=== PATIENT | female | born 1985 | race Caucasian/White ===

== ENCOUNTER 2019-05-28 10:00 | Inpatient (IN) | payer OTHER ==
[2019-05-28 11:10] LABS: BASO % 0.6 % (0-2.0); EOS % 0.3 % (0-4.5); HEMATOCRIT 39.3 % (32.4-45.2); HEMOGLOBIN 13.6 GM/dL (10.7-15.3); LYMPH % 20.8 % (8-40); MCH 31.1 pg (25.7-33.7); MCHC 34.7 g/dl (32.0-36.0); MEAN CELL VOLUME 89.8 fl (80-96); MEAN PLT VOLUME 8.7 fl (7.5-11.1); MONO % 7.9 % (3.8-10.2); NEUT % 70.4 % (42.8-82.8); PLATELET COUNT 225 K/MM3 (134-434); RBC 4.38 M/mm3 (3.60-5.2); RDW 13.1 % (11.6-15.6); WHITE BLOOD COUNT 7.4 K/mm3 (4.0-10.0)
[2019-05-28 11:26] LABS: INR 0.87 (0.83-1.09); PROTHROMBIN TIME (PATIENT) 10.3 SEC (9.7-13.0)
[2019-05-28 11:47] LABS: ALBUMIN 2.7 g/dl (3.4-5.0); BILIRUBIN,TOTAL 0.2 mg/dL (0.2-1); BLOOD UREA NITROGEN 8.5 mg/dL (7-18); CALCIUM 9.2 mg/dL (8.5-10.1); CREATININE 0.6 mg/dL (0.55-1.3); POTASSIUM 4.3 mmol/L (3.5-5.1); TOT PROT 6.4 g/dl (6.4-8.2)
[2019-05-28 12:17] LABS: EPI CELLS 3.5 /HPF (0-5/HPF); HYALINE CASTS 1 /lpf (0-8); URINE APPEARANCE CLEAR; URINE BACTERIA 59.9 /hpf (NEGATIVE); URINE BILIRUBIN NEGATIVE (NEGATIVE); URINE COLOR YELLOW; URINE GLUCOSE (UA) NEGATIVE (NEGATIVE); URINE KETONE NEGATIVE (NEGATIVE); URINE LEUK ESTERASE TRACE (NEGATIVE); URINE NITRITE NEGATIVE (NEGATIVE); URINE PROTEIN NEGATIVE (NEGATIVE); URINE RBC 0 /hpf (0-4); URINE UROBILINOGEN 0.2 mg/dL (0.2-1.0); URINE WBC 10 /hpf (0-5)
[2019-05-28 12:37] VITALS: BMI 36.2
--- NOTE | 2019-05-28 12:42 | HP ---
Past Medical History - Admission Chief Complaint: Uterine Contractions History of Present Illness: 34yo @ 40.0 weeks presents with mild contractions, found not to be in active labor, but has elevated blood pressures. In light of the elevated blood pressures at this time, decision made to induce labor No VB/LOF. 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 Weeks Gestation by Dates: 40.0 ...EDC by Dates: 05/28/19 ...EDC by Sono: 05/28/19 Heme/Onc: Yes: Anemia Infectious Disease: No: AIDS, C-Diff, Herpes Zoster, HIV, MRSA, STD's, Tuberculosis, VREF, Other - Past Surgical History Past Surgical History: Yes: None Hx Myomectomy: No Hx Transabdominal Cerclage: No - Smoking History Smoking history: Never smoked Have you smoked in the past 12 months: No - Alcohol/Substance Use Hx Alcohol Use: No - Social History Usual Living Arrangement: Yes: With Child Do you think of yourself as: Straight/Heterosexual ADL: Independent History of Recent Travel: No Home Medications - Allergies Allergies/Adverse Reactions: Allergies Allergy/AdvReac Type Severity Reaction Status Date / Time No Known Allergies Allergy Verified 05/28/19 10:41 - Home Medications Home Medications: Ambulatory Orders Prenat 115/Iron Fum/Folic/Dss [ 19 Tablet] 1 tab PO DAILY 05/04/19 Ferrous Sulfate [Iron] 325 mg PO DAILY 05/06/19 Review of Systems - Review of Systems Constitutional: denies: No Symptoms, Chills, Diaphoresis, Fever, Lethargy, Loss of Appetite, Malaise, Night Sweats, Unintentional Wgt. Loss, Weakness, Other Cardiovascular: denies: No Symptoms, Chest Pain, Edema, Palpitations, Shortness of Breath, Other Respiratory: denies: No Symptoms, Cough, Exercise Intolerance, Hemoptysis, Orthopnea, PND, Snoring, SOB, SOB on Exertion, Wheezing, Other Gastrointestinal: denies: No Symptoms, Abdominal Pain, Bloating, Constipation, Diarrhea, Dysphagia, Indigestion, Melena, Nausea, Rectal Bleeding, Vomiting, Vomiting Blood, Other Physical Exam - Maternity Vital Signs: Vital Signs Temperature 98.2 F 05/28/19 11:52 Pulse Rate 80 05/28/19 11:52 Respiratory Rate 17 05/28/19 11:52 Blood Pressure 155/104 H 05/28/19 11:52 O2 Sat by Pulse Oximetry (%) Constitutional: Yes: Well Nourished, No Distress, Calm - Abdominal Exam/OB Number of Fetuses: Single Presentation: Vertex Contractions: Yes Regularity: Irregular Intensity: Mild Monitor Mode: External Heart Rate Location: [facility] Category: I Accelerations: Non-Uniform Decelerations: None - Vaginal Exam/OB Vaginal Bleediing: No Speculum Exam: No Dilatation (cm): 2-3 Effacement (%): 50 Amniotic Membrane Status: Intact Presentation: Vertex/Position Station: -3 - Physical Exam Edema: No - Labs Lab Results: CBC, BMP 05/28/19 10:56 05/28/19 10:56 Imaging - Results Ultrasound: Report Reviewed Assessment/Plan 34yo @ 40.0wks here with elevated blood pressures, for IOL for gestational HTN Admit to L&D Cat I tracing PIH labs done, normal. Negative protein Expectantly manage BP unless persistently elevated in severe range Pitocin/AROM induction Anticipate Mike Groves MD
[2019-05-28] MEDS ORDERED: OXYTOCIN 30 UNITS in 0.9% NS 30 UNIT/500 ML INFUS.BAG IVPB SCH (12:45)
--- NOTE | 2019-05-28 13:24 | PN ---
Progress Note, Labor Vaginal Exam #1 Labor Exam Date: 05/28/19 Labor Exam Time: 13:21 Heart Rate (range): Cat I Dilatation: 4 Effacement (%): 50 Amniotic Membrane Status: Ruptured Presentation: Vertex/Position Station: -3 Remarks: AROM, scant clears Start pitocin Discussed pain management, epidural prn Intermittent variable decels when lying on back, repositioned with improvement. Will place IUPC for better tracing of contractions Anticipate GUSTAVO Groves MD
[2019-05-28] MEDS ORDERED: ELECTROLYTE-148 SOLN 1,000 ML IV SCH (13:45)
[2019-05-28] MEDS ORDERED: OXYTOCIN 30 UNITS in 0.9% NS 30 UNIT/500 ML INFUS.BAG IVPB ONE (13:55)
[2019-05-28 13:59] LABS: URIC ACID 5.6 mg/dL (2.6-7.2)
[2019-05-28] MEDS ORDERED: LIDOCAINE HCL 1% PRESERVATIVE FREE - 30ML VIAL ONE (15:02)
[2019-05-28] MEDS ORDERED: OXYTOCIN 20 UNITS in 0.9% NS 20 UNIT/1,000 ML INFUS.BAG IV ONE ×2 (15:03→17:22)
--- NOTE | 2019-05-28 15:03 | PN ---
Progress Note, Labor Vaginal Exam #2 Labor Exam Date: 05/28/19 Labor Exam Time: 15:03 Heart Rate (range): Cat II Dilatation: 10 Effacement (%): 100 Amniotic Membrane Status: Ruptured Presentation: Vertex/Position Station: 0 Remarks: Pt very uncomfortable Now complete FHT Cat II 2/2 variable decels with contractions Will start pushing Anticipate Mike Groves MD
[2019-05-28] MEDS ORDERED: BISACODYL 10 MG SUPP.RECT RC PRN (15:34)
[2019-05-28] MEDS ORDERED: WITCH HAZEL 50% (TUCKS) 40 PAD/JAR PAD TP PRN (15:34)
[2019-05-28] MEDS ORDERED: BENZOCAINE 28 GM HEMORRHOIDAL OINTMENT TP PRN (15:34)
[2019-05-28] MEDS ORDERED: BENZOCAINE 20% 57 GM BOTTLE TP PRN (15:34)
[2019-05-28] MEDS ORDERED: METHYLERGONOVINE MALEATE 0.2 MG/1 ML AMP IM PRN (15:34)
--- NOTE | 2019-05-28 15:34 | PN ---
Delivery - Delivery Vaginal Delivery: Spontaneous Type of Anesthesia: None Episiotomy/Laceration: Midline, 1st degree EBL (cc): 250 Delivery, Single - Stages of Labor Placenta: Yes: Spontaneous - Condition of Sales Team Recruiter/Country Singer Present: Yes Gender: Female Position: Left, OA - 1 Minute Total Score: 9 5 Minutes Total Score: 9 - Feeding Plan Initial Plan: Exclusive throughout hospitalization Benefits of Exclusively reinforced: No Remarks - Remarks Remarks: of VFI from ALEXANDER position over intact perineum. Nechal x 1 delivered through. No meconium. 40 weeks. No anesthesia. Spontaneous delivery of anterior shoulder and body. Infant placed on maternal abdomen. Cord clamped and cut. Weight pending to allow sufficient skin to skin. Apgars 9/9. Spontaneous delivery of intact placenta with 3VC. Fundus firm. Perineum inspected, midline first degree identified, and repaired with 2-0 chromic after 1% lidocaine injected. Hemostasis noted. EBL 250ml. Mother and baby doing well Melissa Groves MD
[2019-05-28] MEDS ORDERED: ACETAMINOPHEN 325 MG TABLET (FP) ONE (15:43)
[2019-05-28] MEDS ORDERED: IBUPROFEN 600 MG TABLET (FP) PO ONE (15:43)
[2019-05-28] MEDS ORDERED: OXYTOCIN 20 UNITS in 0.9% NS 20 UNIT/1,000 ML INFUS.BAG IV SCH (15:45)
[2019-05-28] MEDS: ACETAMINOPHEN 325 MG TABLET (FP) PO PRN ×2 (15:55→20:13)
[2019-05-28] MEDS: IBUPROFEN 600 MG TABLET (FP) PO PRN ×2 (15:55→20:14)
[2019-05-29 08:18] LABS: BASO % 0.4 % (0-2.0); EOS % 1.1 % (0-4.5); HEMATOCRIT 35.9 % (32.4-45.2); HEMOGLOBIN 12.3 GM/dL (10.7-15.3); MCH 31.2 pg (25.7-33.7); MCHC 34.2 g/dl (32.0-36.0); MEAN CELL VOLUME 91.2 fl (80-96); MEAN PLT VOLUME 9.3 fl (7.5-11.1); MONO % 7.1 % (3.8-10.2); NEUT % 71.4 % (42.8-82.8); PLATELET COUNT 200 K/MM3 (134-434); RBC 3.93 M/mm3 (3.60-5.2); RDW 13.5 % (11.6-15.6); WHITE BLOOD COUNT 8.4 K/mm3 (4.0-10.0)
[2019-05-29] MEDS: PRENATAL VITAMINS W/ FOLIC ACID TABLET (FP) PO SCH (09:29)
[2019-05-29] MEDS ORDERED: FLU VACCINE QUAD 60 MCG/0.5 ML (MDV 19-20) IM ONE (10:00)
[2019-05-29] MEDS ORDERED: FLU VACC QS2019-20(6MOS UP)/PF 60 MCG/0.5 ML SYRINGE IM ONE (10:00)
--- NOTE | 2019-05-29 11:51 | PN ---
Post Progress Note - Subjective Subjective: Pain controlled. Lochia < menses. . Ambulating Post Day: 1 ([place]) Type of Delivery: Vital Signs: Vital Signs Temperature 97.8 F 05/29/19 08:15 Pulse Rate 61 05/29/19 08:15 Respiratory Rate 20 05/29/19 08:15 Blood Pressure 137/91 05/29/19 08:15 O2 Sat by Pulse Oximetry (%) Uterus: Yes: Fundus below umbilicus Abdomen/GI: Yes: Abdomen soft, Tolerating PO Lochia: Yes: Rubra Lochia, amount: Small Extremities: Yes: Calves non-tender Perineum: Yes: Laceration Activity: Ambulating - Labs Labs: CBC WBC 8.4 K/mm3 (4.0-10.0) 05/29/19 07:35 RBC 3.93 M/mm3 (3.60-5.2) 05/29/19 07:35 Hgb 12.3 GM/dL (10.7-15.3) 05/29/19 07:35 Hct 35.9 % (32.4-45.2) 05/29/19 07:35 MCV 91.2 fl (80-96) 05/29/19 07:35 MCH 31.2 pg (25.7-33.7) 05/29/19 07:35 MCHC 34.2 g/dl (32.0-36.0) 05/29/19 07:35 RDW 13.5 % (11.6-15.6) 05/29/19 07:35 Plt Count 200 K/MM3 (134-434) 05/29/19 07:35 MPV 9.3 fl (7.5-11.1) 05/29/19 07:35 Absolute Neuts (auto) 6.0 K/mm3 (1.5-8.0) 05/29/19 07:35 Neutrophils % 71.4 % (42.8-82.8) 05/29/19 07:35 Lymphocytes % 20.0 % (8-40) 05/29/19 07:35 Monocytes % 7.1 % (3.8-10.2) 05/29/19 07:35 Eosinophils % 1.1 % (0-4.5) D 05/29/19 07:35 Basophils % 0.4 % (0-2.0) 05/29/19 07:35 Nucleated RBC % 0 % (0-0) 05/29/19 07:35 Assessment/Plan 34yo s/p , PPD#1 c/b GHTN Routine PP care PO pain control Labs reviewed Monitor BPs, no meds this time Anticipate d/c to home PPD#2 with 1 week follow up for BP check Mike Groves MD
[2019-05-29] MEDS: IBUPROFEN 600 MG TABLET (FP) PO PRN (18:04)
[2019-05-29] MEDS: ACETAMINOPHEN 325 MG TABLET (FP) PO PRN (18:04)
[2019-05-29] MEDS ORDERED: SENNOSIDES/DOCUSATE COMBO (SENNA PLUS) TABLET (UD) PO PRN (22:00)
[2019-05-30] MEDS: ACETAMINOPHEN 325 MG TABLET (FP) PO PRN (00:29)
[2019-05-30 09:30] VITALS: BP 128/87; PULSE 63; TEMP 97.9
[2019-05-30] MEDS: PRENATAL VITAMINS W/ FOLIC ACID TABLET (FP) PO SCH (09:35)
--- NOTE | 2019-05-30 10:49 | DS ---
Physical Examination Vital Signs: Vital Signs Temperature 97.9 F 05/30/19 09:00 Pulse Rate 63 05/30/19 09:00 Respiratory Rate 18 05/30/19 09:00 Blood Pressure 128/87 05/30/19 09:00 O2 Sat by Pulse Oximetry (%) Constitutional: Yes: Well Nourished, No Distress, Calm Eyes: Yes: WNL, Conjunctiva Clear, EOM Intact HENT: Yes: WNL, Atraumatic, Normocephalic Neck: Yes: WNL, Supple, Trachea Midline Cardiovascular: Yes: WNL, Regular Rate and Rhythm Respiratory: Yes: WNL, Regular, CTA Bilaterally Gastrointestinal: Yes: WNL, Normal Bowel Sounds Musculoskeletal: Yes: WNL Extremities: Yes: WNL Edema: No Integumentary: Yes: WNL Neurological: Yes: WNL, Alert, Oriented ...Motor Strength: WNL Psychiatric: Yes: WNL Labs: CBC, BMP 05/29/19 07:35 05/28/19 10:56 Discharge Summary Problems reviewed: Yes Reason For Visit: LABOR ADMISSION Current Active Problems Gestational hypertension (Acute) (normal spontaneous vaginal delivery) (Acute) Procedures: Principal: Hospital Course: Patient presented to L&D for labor assessment and was noted to have elevated blood pressure. She was induced for her gestational HTN She had an uncomplicated She met all milestones Her elevated blood pressures resolved spontaneously She was discharged home on PPD#2 M. MD [facility] Concerns: None Condition: Stable - Instructions Diet, Activity, Other Instructions: Regular Diet Follow up in 1 week for a blood pressure check Referrals: Melissa Groves MD [Staff Physician] - Disposition: HOME - Home Medications Comprehensive Discharge Medication List: Ambulatory Orders Prenat 115/Iron Fum/Folic/Dss [ 19 Tablet] 1 tab PO DAILY 05/04/19 Ferrous Sulfate [Iron] 325 mg PO DAILY 05/06/19 Ibuprofen 600 mg PO Q6H PRN #30 tablet 05/28/19
== END 2019-05-30 13:10 | disposition home or self-care (01) | DRG 560 ==
LOC: JDEL 10:00 → JLDR 10:35 → J3W 17:39
PROVIDERS: ADMIT Obstetrics & Gynecology; ATTEND Obstetrics & Gynecology
PROC: 10E0XZZ Delivery of Products of Conception, External Approach (ICD-10-PCS; principal; 2019-05-28)
PROC: 0HQ9XZZ Repair Perineum Skin, External Approach (ICD-10-PCS; 2019-05-28)
PROC: 0W8NXZZ Division of Female Perineum, External Approach (ICD-10-PCS; 2019-05-28)
DX: O13.4 Gestational [pregnancy-induced] hypertension without significant proteinuria, complicating childbirth (principal); O70.0 First degree perineal laceration during delivery; Z3A.40 40 weeks gestation of pregnancy; Z37.0 Single live birth
CPT/HCPCS: 36415; 59409; 80048; 80053; 81003; 84550; 85025; 85610; 85730; 86593; 86850; 86900; 86901; 90686